=== PATIENT | male | born 1975 | race Caucasian/White ===

== ENCOUNTER 2024-03-04 10:12 | Emergency (ER) | payer OTHER ==
[~2024-03-04] VITALS: Ht 165.1 cm; Wt 77.1 kg
[2024-03-04 10:18] VITALS: PULSE 66; RESP 22; TEMP 98.4; O2SAT 100
[2024-03-04] MEDS: ACETAMINOPHEN EXTRA STRENGTH 500 MG TAB PO ONE (11:09)
[2024-03-04 11:15] VITALS: O2SAT 100
[2024-03-04] MEDS: KETOROLAC 30 MG/ML VIAL IM ONE (11:18)
[2024-03-04 11:29] VITALS: BP 138/87; PULSE 64; RESP 22; TEMP 98.4; O2SAT 100
[2024-03-04 11:53] LABS: BASOPHILS % (AUTO) 0.4 % (0.0-2.0); EOSINOPHILS # (AUTO) 0.2 K/uL (0-0.4); EOSINOPHILS % (AUTO) 3.1 % (0.0-4.0); HEMATOCRIT 45.9 % (36-52); HEMOGLOBIN 15.6 g/dL (12.0-18.0); LYMPHOCYTES # (AUTO) 1.9 K/uL (2.0-11.5); LYMPHOCYTES % (AUTO) 37.8 % (20.5-51.1); MEAN CORPUSCULAR HEMOGLOBIN 30 pg (27-31); MEAN CORPUSCULAR HGB CONC 34 g/dL (33-37); MEAN CORPUSCULAR VOLUME 87.4 fL (80-94); MONOCYTES # (AUTO) 0.3 K/uL (0.8-1.0); MONOCYTES % (AUTO) 6.8 % (1.7-9.3); NEUTROPHILS # (AUTO) 2.6 K/uL (1.8-7.7); NEUTROPHILS % (AUTO) 51.9 % (42.2-75.2); PLATELET COUNT (AUTO) 246 K/uL (140-450); RED BLOOD CELL COUNT(AUTO) 5.25 MIL/uL (4.20-6.10); RED CELL DISTRIBUTION WIDTH 14.1 % (11.6-13.7)
[2024-03-04 12:16] LABS: INR 0.97 (0.8-1.2); PARTIAL THROMBOPLASTIN TIME 25.4 secs (22-35.6); PROTHROMBIN TIME 10.2 secs (10.8-13.4)
[2024-03-04 12:25] LABS: ANION GAP 11.2 (8-16); CALCIUM 8.8 mg/dL (8.5-10.1); CARBON DIOXIDE 26.7 mmol/L (21-32); CREATININE 0.7 mg/dL (0.6-1.3); POTASSIUM 3.9 mmol/L (3.5-5.1)
== END 2024-03-04 13:06 | disposition home or self-care (01) ==
LOC: MED 10:12
DX: M25.512 Pain in left shoulder (principal); M25.511 Pain in right shoulder; M79.602 Pain in left arm; M79.601 Pain in right arm
CPT/HCPCS: 36415; 71045; 80048; 83880; 84484; 85025; 85610; 85730; 93005; 96372; 99285; J1885